=== PATIENT | male | born 1970 | race Caucasian/White ===

== ENCOUNTER 2023-07-21 12:57 | Outpatient (CLI) | payer OTHER ==
--- NOTE | 2023-07-21 13:30 | XRAY Report ---
PROCEDURE: Chest 2V INDICATIONS: URI, COUGH TECHNIQUE: 2 views of the chest were acquired. COMPARISON: None. FINDINGS: Surgical changes and devices: None. Lungs and pleura: No pleural effusions or pneumothorax. Lungs are clear. Mediastinum: Mediastinal contours appear normal. Heart size is normal. Bones and chest wall: No suspicious bony lesions. Overlying soft tissues appear unremarkable. IMPRESSION: No acute cardiopulmonary process. Reviewed by: Ryan Wills MD on 07/21/2023 1:28 PM PST Approved by: Ryan Wills MD on 07/21/2023 1:28 PM [facility] Station ID: [id number]
== END 2023-07-21 12:58 | disposition home or self-care (01) ==
LOC: DI 12:57
PROVIDERS: ATTEND Family Medicine
DX: J06.9 Acute upper respiratory infection, unspecified (principal); R05.9 Cough, unspecified